=== PATIENT | female | born 1990 | race Caucasian/White ===

== ENCOUNTER 2020-12-17 19:56 | Emergency (ER) | payer OTHER ==
[~2020-12-17] VITALS: Ht 154.9 cm; Wt 99.8 kg
[2020-12-17 20:16] VITALS: BP 155/89
--- NOTE | 2020-12-17 20:19 | NUR ---
to lobby a/w bed ambulatory
--- NOTE | 2020-12-17 21:10 | NUR ---
, 10 weeks, LMP SEPTEMBER 29, SHE wanted an ultrasound, no bleeding, nor pain. 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 patient feels worried and needs the re-assurance. patient AAOx4, VSS. pmh: denies nka
--- NOTE | 2020-12-17 22:09 | NUR ---
patient ambulated to the bathroom with a steady gait
[2020-12-17 22:23] LABS: BASOPHILS % (AUTO) 0.2 % (0.0-2.0); EOSINOPHILS # (AUTO) 0.2 K/uL (0-0.4); EOSINOPHILS % (AUTO) 1.7 % (0.0-4.0); HEMATOCRIT 39.4 % (36-48); HEMOGLOBIN 13.3 g/dL (12.0-16.0); LYMPHOCYTES # (AUTO) 3.1 K/uL (2.5-16.5); LYMPHOCYTES % (AUTO) 31.1 % (20.5-51.1); MEAN CORPUSCULAR HEMOGLOBIN 30 pg (27-31); MEAN CORPUSCULAR HGB CONC 34 g/dL (33-37); MEAN CORPUSCULAR VOLUME 89.5 fL (80-94); MONOCYTES # (AUTO) 0.7 K/uL (0.8-1.0); MONOCYTES % (AUTO) 6.8 % (1.7-9.3); NEUTROPHILS % (AUTO) 60.2 % (42.2-75.2); PLATELET COUNT (AUTO) 256 K/uL (140-450); RED CELL DISTRIBUTION WIDTH 13.9 % (11.6-13.7); WHITE BLOOD COUNT (AUTO) 9.9 K/uL (4.8-10.8)
--- NOTE | 2020-12-17 22:32 | NUR ---
ultrasound at bedside
[2020-12-17 22:47] LABS: ANION GAP 12.2 (8-16); CARBON DIOXIDE 26.3 mmol/L (21-32); CREATININE 0.7 mg/dL (0.6-1.3); POTASSIUM 3.5 mmol/L (3.5-5.1)
--- NOTE | 2020-12-17 23:30 | NUR ---
ERMD at bedside for results.
--- NOTE | 2020-12-17 23:44 | NUR ---
Patient discharged with v/s stable. Written and verbal after care instructions given and explained. Patient verbalized understanding. Ambulatory with steady gait. ID band removed. All questions addressed prior to discharge. Advised to follow up with PMD.
[2020-12-17 23:46] VITALS: BP 124/67
== END 2020-12-17 23:44 | disposition home or self-care (01) ==
LOC: MED 19:56
DX: O03.9 Complete or unspecified spontaneous abortion without complication (principal)
CPT/HCPCS: 36415; 76801; 80048; 84702; 85025; 99284; Q0092

== ENCOUNTER 2020-12-22 18:36 | Emergency (ER) | payer OTHER ==
[~2020-12-22] VITALS: Ht 157.5 cm; Wt 98.9 kg
[2020-12-22 19:00] VITALS: BP 146/95
--- NOTE | 2020-12-22 19:30 | NUR ---
PATIENT CALL TO BED NO RESPONSE. PATIENT LEFT WITHOUT BEING SEEN BY DR. KIDD. NO FURTHER CARE PROVIDED FOR PATIENT.
--- NOTE | 2020-12-22 19:35 | NUR ---
CALLED FOR THE SECOND TIME, NO RESPONSE
--- NOTE | 2020-12-22 19:40 | NUR ---
CALLED FOR THE THIRD TME, NO RESPONSE
== END 2020-12-22 19:30 | disposition left against medical advice (07) ==
LOC: MED 18:36
DX: R10.9 Unspecified abdominal pain (principal); Z53.21 Procedure and treatment not carried out due to patient leaving prior to being seen by health care provider

== ENCOUNTER 2022-10-08 18:40 | Emergency (ER) | payer OTHER ==
[~2022-10-08] VITALS: Ht 154.9 cm; Wt 90.7 kg
[2022-10-08 18:43] VITALS: BP 136/91; PULSE 65; RESP 16; TEMP 98.4; O2SAT 100
--- NOTE | 2022-10-08 21:40 | NUR ---
CALLED PT IN [facility]; UNABLE TO LOCATE.
--- NOTE | 2022-10-08 21:50 | NUR ---
ATTEMPTED TO LOCATE PT IN [facility] X2; UNABLE TO LOCATE.
--- NOTE | 2022-10-08 22:04 | NUR ---
UNABLE TO LOCATE PT IN [facility]; LWBS
== END 2022-10-08 21:40 | disposition left against medical advice (07) ==
LOC: MED 18:40
DX: M79.602 Pain in left arm (principal); Z53.21 Procedure and treatment not carried out due to patient leaving prior to being seen by health care provider
CPT/HCPCS: 99281

== ENCOUNTER 2023-02-05 11:55 | Emergency (ER) | payer OTHER ==
[~2023-02-05] VITALS: Ht 157.5 cm; Wt 87.1 kg
[~2023-02-05 11:55] MED LIST: HYDR25CA1 PO
[2023-02-05 12:44] VITALS: BP 138/92; PULSE 75; RESP 18; TEMP 98.3; O2SAT 100
[2023-02-05] MEDS ORDERED: IBUP-2213 PO (13:59)
== END 2023-02-05 14:12 | disposition home or self-care (01) ==
LOC: MED 11:55
DX: R07.89 Other chest pain (principal); M79.602 Pain in left arm; Z79.899 Other long term (current) drug therapy; Z79.1 Long term (current) use of non-steroidal anti-inflammatories (NSAID)
CPT/HCPCS: 71046; 73060; 93005; 99284